=== PATIENT | female | born 1985 | race Hispanic/Latino ===

== ENCOUNTER 2019-12-27 20:00 | Emergency (ER) | payer BC, OTHER ==
--- NOTE | 2019-12-27 20:31 | RAD ---
Exam: XR Hand Lt 3 View STANDARD HISTORY: Pain left third finger after a fall. COMPARISON: None FINDINGS: No acute fracture, dislocation, or other acute osseous abnormality is identified. IMPRESSION: No acute osseous abnormality is identified. If patient's pain persists, follow-up imaging is recommen ded.
[2019-12-27] MEDS ORDERED: Ibuprofen 200 MG TAB ONE (20:57)
== END 2019-12-27 21:05 | disposition home or self-care (01) ==
LOC: ERS 20:00
DX: S60.032A Contusion of left middle finger without damage to nail, initial encounter (principal); W01.0XXA Fall on same level from slipping, tripping and stumbling without subsequent striking against object, initial encounter